=== PATIENT | female | born 1965 | race Caucasian/White ===

== ENCOUNTER → 2023-02-21 | Outpatient (CLI) | payer BC ==
--- NOTE | 2023-02-25 08:59 | CT ---
EXAMINATION TYPE: CT shoulder RT wo con DATE OF EXAM: 02/21/2023 COMPARISON: None HISTORY: Rt shoulder pain/arthritis. Pre surgical. CT DLP: 394.[address] of the right shoulder with reconstruction imaging. TECHNIQUE: Unenhanced CT of the right shoulder was performed with bone and soft tissue window setting s submitted in the axial coronal and sagittal planes. At a separate workstation 3-D TR imaging was o btained. FINDINGS: There is fragmentation in the region of the inferior bony glenoid which may reflect fractur e. There is well-corticated ossific density noted measuring 1 cm in this region. There is flattening of the humeral head posteriorly which may reflect chronic Hill-Sachs deformity. Severe narrowing of t he glenohumeral joint space humeral head spurring and mild subchondral cyst formation. No evidence fo r subacromial impingement as there is a flat acromium. AC joint arthropathy mild in degree. No obvio us rotator cuff abnormality seen on CT. MRI is much more sensitive and specific to rotator cuff path ology. No soft tissue masses appreciated. Visualized portions of the right lung demonstrate right a pical scarring. IMPRESSION: 1. I cannot exclude fracture inferior bony glenoid. 2. Well-corticated ossific density measuring 1 cm adjacent to the inferior glenoid/medial proximal hu merus. 3. Probable chronic Hill-Sachs deformity of the humeral head.
== END | disposition home or self-care (01) ==
LOC: RADCTMAIN 17:11
PROVIDERS: ATTEND Orthopaedic Surgery Sports Medicine
DX: M25.511 Pain in right shoulder (principal); M85.9 Disorder of bone density and structure, unspecified

== ENCOUNTER → 2023-02-21 | Outpatient (CLI) | payer BC ==
[2023-02-21 19:19] LABS: INR 0.9 (<1.2); Partial Thromboplastin Time 32.8 sec (22.0-30.0); Prothrombin Time 9.7 sec (10.0-12.5)
[2023-02-22 02:39] LABS: HGB 13.6 g/dL (12.0-15.0); MCH 28.6 pg (27.0-32.0); MCHC 32.4 g/dL (32.0-37.0); MCV 88.4 FL (80.0-97.0); Mean Platelet Volume 11.1 FL (9.5-12.2); NRBC Per 100 WBC 0 X 10*3/uL (0.00-0.01); Platelet Count 246 X 10*3/uL (140-440); RBC 4.75 X 10*6/uL (4.10-5.20); RDW 12.5 % (11.5-14.5); WBC 8.09 X 10*3/uL (4.50-10.00)
[2023-02-22 02:57] LABS: ALT 35 U/L (8-44); AST 17 U/L (13-35); Albumin 4.7 g/dL (3.8-4.9); Albumin/Globulin Ratio 2.14 Ratio (1.60-3.17); Alkaline Phosphatase 133 U/L (41-126); BUN/Creat Ratio 32.67 Ratio (12.00-20.00); Blood Urea Nitrogen 19.6 mg/dL (9.0-27.0); Calcium 10.1 mg/dL (8.7-10.3); Chloride 103 mmol/L (96-109); Globulin 2.2 g/dL (1.6-3.3); Glucose 105 mg/dL (70-110); Potassium 4.4 mmol/L (3.5-5.5); Sodium 139 mmol/L (135-145); Total Bilirubin <0.2 mg/dL (0.3-1.2); Total Protein 6.9 g/dL (6.2-8.2)
== END | disposition home or self-care (01) ==
LOC: LABPAT 16:03
PROVIDERS: ATTEND Orthopaedic Surgery Sports Medicine
DX: Z01.812 Encounter for preprocedural laboratory examination (principal); Z22.322 Carrier or suspected carrier of Methicillin resistant Staphylococcus aureus; M19.011 Primary osteoarthritis, right shoulder
CPT/HCPCS: 80053; 85027; 85610; 85730; 93005

== ENCOUNTER 2023-03-06 07:49 | Observation (INO) | payer BC ==
[2023-03-04 08:45] VITALS: BMI 29.0
[~2023-03-06 07:49] MED LIST: ACETAMINOPHEN TAB 500 MG TAB PO PRN; HYDROmorphone 0.5 MG/0.5 ML SYRINGE IVP PRN; LIDOCAINE 1% (10MG/ML) FOR IV START INTRADERMA PRN; ONDANSETRON 4 MG/2 ML VIAL IVP PRN; TRANEXAMIC 1,000 MG/100ML-NACL 1,000 MG in SALINE 1 100ML.BAG IVPB PRN
[2023-03-06] MEDS: LACTATED RINGERS 1,000 ML IV SCH ×2 (08:02→14:42)
[2023-03-06] MEDS: GABAPENTIN 300 MG CAP PO PRN (08:07)
[2023-03-06] MEDS: MELOXICAM 7.5 MG TAB PO PRN (08:08)
[2023-03-06] MEDS: ONDANSETRON 4 MG/2 ML VIAL IVP PRN (08:38)
[2023-03-06] MEDS: DEXAMETHASONE SOD PHOSPHATE 4 MG/ML 1 ML VIAL IV ONE (08:38)
[2023-03-06] MEDS: MIDAZOLAM 2 MG/2 ML VIAL IVP ONE (08:51)
[2023-03-06] MEDS ORDERED: GLYCOPYRROLATE 0.2 MG/ML 2 ML VIAL ONE (09:25)
[2023-03-06] MEDS ORDERED: TRANEXAMIC 1,000 MG/100ML-NACL PREMIX BAG ONE (09:25)
[2023-03-06] MEDS ORDERED: SUCCINYLCHOLINE CHLORIDE 200 MG/10 ML VIAL IV ONE (09:25)
[2023-03-06] MEDS ORDERED: DEXAMETHASONE SOD PHOSPHATE 4 MG/ML 1 ML VIAL ONE (09:25)
[2023-03-06] MEDS ORDERED: ePHEDrine 50 MG/ML 1 ML VIAL ONE (09:25)
[2023-03-06] MEDS ORDERED: ROCURONIUM 10 MG/ML (5 ML VIAL) IV ONE (09:25)
[2023-03-06] MEDS ORDERED: PHENYLEPHRINE-0.9% NACL SYG 1,000 MCG/10 ML SYRINGE ONE (09:25)
[2023-03-06] MEDS ORDERED: LIDOCAINE 1% INJ 10MG/ML (20 ML MDV) ONE (09:25)
[2023-03-06] MEDS ORDERED: PHENYLEPHRINE 10 MG/ML VIAL ONE (09:25)
[2023-03-06] MEDS ORDERED: ROPIVACAINE 5 MG/ML 30 ML VIAL ONE (09:25)
[2023-03-06] MEDS ORDERED: NEOSTIGMINE 1 MG/ML 10 ML VIAL ONE (09:25)
[2023-03-06] MEDS ORDERED: PROPOFOL 10 MG/ML 20 ML VIAL IV ONE (09:25)
[2023-03-06] MEDS ORDERED: ONDANSETRON 4 MG/2 ML VIAL IVP PRN (09:40)
[2023-03-06] MEDS ORDERED: SENNOSIDES-DOCUSATE SODIUM 1 EACH TAB PO PRN (09:40)
[2023-03-06] MEDS ORDERED: TEMAZEPAM 15 MG CAP PO PRN (09:40)
[2023-03-06] MEDS ORDERED: diphenhydrAMINE 25 MG CAP PO PRN (09:40)
[2023-03-06] MEDS ORDERED: HYDROmorphone 0.5 MG/0.5 ML SYRINGE IVP PRN ×2 (09:40)
[2023-03-06] MEDS ORDERED: METOCLOPRAMIDE 5 MG/ML 2 ML VIAL IVP PRN (09:40)
[2023-03-06] MEDS: ceFAZolin 1,000 MG in SODIUM CHLORIDE 0.9% 1,000 ML IRRIGATION ONE (10:01)
[2023-03-06] MEDS: VANCOMYCIN 1,000 MG VIAL MISCELLANE ONE (10:18)
--- NOTE | 2023-03-06 12:48 | XR ---
EXAMINATION TYPE: XR shoulder limited RT DATE OF EXAM: 03/06/2023 COMPARISON: NONE HISTORY: 57-year-old female postoperative evaluation right shoulder TECHNIQUE: Single frontal view FINDINGS: There is placement of a right total shoulder arthroplasty. Alignment appears appropriate. Some minima l soft tissue air related to recent operation. No periprosthetic fracture seen. ACDF hardware noted. IMPRESSION: Uncomplicated postoperative appearance right total shoulder arthroplasty.
[2023-03-06] MEDS: droPERidol 5 MG/2 ML VIAL IVP ONE (14:41)
--- NOTE | 2023-03-06 17:18 | P.CONS ---
History of Present Illness - Reason for Consult Consult date: 03/06/23 - History of Present Illness Patient is a 57 y.o female w/ hx of depression, RLS, OA presenting for elective right total shoulder arthroplasty.[facility], [place] physicians has been consulted for medical management. Patient denies any CP, SOB, abdominal pain, urinary or bowel complaints. Vital signs within normal limits, on RA, no labs available. Pertinent positives and negatives as discussed in HPI, a complete review of sy stems was performed and all other systems are negative. Patient seen and examined at bedside. Vital signs reviewed General: nontoxic, no distress, appears at stated age Derm: warm, dry Head: atraumatic, normocephalic, symmetric Eyes: EOMI, no lid lag, anicteric sclera, pupils equal round reactive to light ENT: Nose and ears atraumatic Neck: No thyromegaly, supple Mouth: no lip lesion, mucus membranes moist Cardiovascular: S1S2 reg, no murmur, no edema Lungs: clear to auscultation bilateral, no rhonchi, no rales, no wheeze, no accessory muscle use Abdominal: soft, nontender to palpation, no guarding, no appreciable organomegaly Ext: no gross muscle atrophy, muscle strength muscle strength 5 out of 5 in all 4 extremities, no contractures, right arm in sling Neuro: CN II-XII grossly intact Psych: Alert, oriented, appropriate affect Assessment/Plan: [Active:] S/p right total shoulder arthroplasty Depression restless leg syndrome - on oral norco PRN, IV dilaudid PRN for pain control - bowel regimen and dvt ppx per ortho - continue bupropion and pramipexole and effexor - ok to continue LR 100 cc/hr - CBC and BMP tomorrow Thank you for allowing us to participate in the care of this pleasant patient. Do not hesitate to contact us with questions. Someone can be reached from the [facility] hospitalist group all hours of the day at [phone] or via [employer] To Get Approved For. Past Medical History Past Medical History: Osteoarthritis (OA) Additional Past Medical History / Comment(s): RT SHOULDER PAIN History of Any Multi-Drug Resistant Organisms: None Reported Past Surgical History: Back Surgery, Tonsillectomy Additional Past Surgical History / Comment(s): SPINAL FUSION X 2. COLONOSCOPY Past Anesthesia/Blood Transfusion Reactions: No Reported Reaction Smoking Status: Current some day smoker - Past Family History Father Family Medical History: Cancer Medications and Allergies Home Medications Medication Instructions Recorded Confirmed Type Cider Vinegar [Apple Cider Vinegar] 300 mg PO DAILY 03/04/23 03/06/23 History HYDROcodone/APAP 7.5-325MG [[place] 1 tab PO Q4-6H PRN 03/04/23 03/06/23 History 7.5-325] L.acidoph,Paracasei, B.lactis 1 each PO DAILY 03/04/23 03/06/23 History [Probiotic] Meloxicam [Mobic] 15 mg PO DAILY 03/04/23 03/06/23 History Multivit with Calcium,Iron,Min 1 each PO DAILY 03/04/23 03/06/23 History [Women's Multivitamin] [place]-3/Dha/Epa/Fish Oil [Fish Oil 1 each PO DAILY 03/04/23 03/06/23 History 1,000 mg Softgel] Pramipexole [Mirapex] 0.5 mg PO HS 03/04/23 03/06/23 History Venlafaxine HCl [Effexor XR] 150 mg PO DAILY 03/04/23 03/06/23 History buPROPion HCL [buPROPion HCL Xl] 150 mg PO DAILY 03/04/23 03/06/23 History HYDROcodone/APAP 5-325MG [[place] 5 mg PO Q6HR PRN 03/06/23 03/06/23 History 5-325] Venlafaxine HCl ER [Effexor Xr] 75 mg PO DAILY 03/06/23 03/06/23 History Allergies Allergy/AdvReac Type Severity Reaction Status Date / Time No Known Allergies Allergy Verified 03/06/23 08:03 Physical Exam Vitals: Vital Signs Temp Pulse Pulse Pulse Resp BP BP 03/06/23 15:46 99.3 F 98 18 99/62 03/06/23 14:20 90 16 102/53 03/06/23 13:50 85 16 93/53 03/06/23 13:30 90 16 105/52 03/06/23 13:15 87 16 97/52 03/06/23 13:12 83 16 90/56 03/06/23 12:57 83 16 101/53 03/06/23 12:47 87 16 101/53 03/06/23 12:33 86 16 92/49 03/06/23 12:18 87 16 92/51 03/06/23 12:03 87 16 100/47 03/06/23 11:52 92 16 91/75 03/06/23 08:58 76 14 122/60 03/06/23 08:16 97.8 F 79 18 137/63 Pulse Ox 03/06/23 15:46 95 03/06/23 14:20 95 03/06/23 13:50 95 03/06/23 13:30 94 L 03/06/23 13:15 93 L 03/06/23 13:12 93 L 03/06/23 12:57 95 03/06/23 12:47 97 03/06/23 12:33 95 03/06/23 12:18 95 03/06/23 12:03 99 03/06/23 11:52 100 03/06/23 08:58 99 03/06/23 08:16 98 Intake and Output 03/06/23 03/06/23 03/06/23 06:59 14:59 22:59 Intake Total 851 800 Output Total 100 Balance 751 800 Intake: IV 851 Intake, IV Titration 800 Amount Lactated Ringers 1,000 ml 800 @ 100 mls/hr IV .Q10H [facility] Rx#:[id number] Output: Estimated Blood Loss 100 Other: Weight 84.9 kg
--- NOTE | 2023-03-06 19:14 | OP ---
OPERATIVE REPORT DATE OF SERVICE : 03/06/2023 HOT KNIFE FOXING CUTTER: James Flanagan PA-C. PREOPERATIVE DIAGNOSIS: Right shoulder osteoarthrosis. POSTOPERATIVE DIAGNOSIS: Right shoulder osteoarthrosis. OPERATION: Right total shoulder arthroplasty. ANESTHESIA: General endotracheal. ESTIMATED BLOOD LOSS: 100 mL. DRAINS: None. COMPLICATIONS: None apparent. DISPOSITION: Postanesthesia care unit. INDICATIONS: The patient is a very pleasant 57-year-old female with longstanding right shoulder pain. Workup including x-rays and a CT scan revealed advanced osteoarthrosis of the right shoulder. At this point, it is felt that she has failed conservative management and she would like to proceed with operative intervention. The risks of procedure were discussed with her in detail. These risks include but are not limited to risk of infection, nerve damage, bleeding, pain, instability in the shoulder, loosening the implants, and deep infection. There is also small risk of deep vein thrombosis, which could lead to fatal pulmonary embolism. The patient understood these risks. All of her questions with regard to the risks of procedure were answered to her satisfaction. An appropriate informed consent was obtained. DESCRIPTION OF PROCEDURE: The patient was identified in the preoperative holding area. Surgical site was marked by both the patient and myself. She was given 2 g of Ancef IV for prophylactic purposes. She was then transported to the operative suite. She was placed supine on the operating table. A general anesthetic was administered and dosed per the Anesthesia Department without apparent complication. An examination under anesthesia then performed of the right shoulder. She had elevation to 130 degrees. External rotation at the side was to 30 degrees. She was then placed into the beach chair position, well-padded in preparation for surgery. Great care was taken to ensure that her cervical spine was in neutral alignment, well-padded, and maintained that way throughout the operative procedure. Great care was also taken to ensure that her legs were appropriately padded as well. The patient's right upper extremity was then prepped and draped in the usual sterile fashion. Standard surgical pause undertaken to ensure that we were operating the correct site and that appropriate preoperative antibiotics were given. All staff in the room were in agreement and we proceeded. The acromion AC joint, clavicle, and coracoid were marked with a surgical pen. A planned incision starting at the level of the clavicle and extending distally over the deltopectoral interval approximately 1 cm lateral to the coracoid was marked with a surgical pen. The incision was then made with a 10-blade scalpel. Dissection was carried down sharply to the deltoid fascia. The deltopectoral interval was then identified at the level of the clavicle. A small band retractor was then placed onto the proximal deltoid. I then released the deltoid fascia on the lateral aspect of the cephalic vein. The vein was left in its bed medially. The cephalic vein was protected throughout the entire case. I then identified the clavipectoral fascia. This was incised proximally to the level of the coracoacromial ligament. The coracoacromial ligament was left intact. I then used my finger to spread the interval between the conjoint tendon and the subscapularis. I felt for the axillary nerve, which was readily palpable. I then cleared the subacromial and subdeltoid spaces of bursal and scar tissue. I then utilized a brown retractor to hold the deltoid and exposed the humeral head. I then proceeded to release the subscapularis in the anterior inferior shoulder capsule. The rotator cuff was inspected. The rotator cuff was intact. The rotator interval was identified. The course of the biceps tendon was also identified. At this point, I did tenodesed the biceps to the proximal soft tissue of the bicipital groove. This was done with multiple interrupted 0 Vicryl sutures. I then released the rotator interval. The release started at the base of the coracoid and then out laterally. The subscapularis and the capsule were then released intertendinously. The subscapularis and capsule release extended distally in a lazy-S fashion approximately 1 cm medial to the biceps tendon. I then continued to release the capsule along the inferior neck in a vertical fashion to approximately the 6 o'clock position. Great care was taken to ensure the capsule was always visualized as it was released as to avoid injuring the axillary nerve. I then brought a Ayala guest room inspector with the arm externally rotated and abducted. I continued to release the capsule inferomedially to approximately the 4 o'clock position. The inferior osteophytes were now removed as well. This was done with a rongeur. I then proceeded with preparation of the humerus. I removed all the goat's henderson osteophytes. I then removed the subchondral plate from the superior aspect of the humeral head utilizing a large rongeur. I then used a starting reamer to gain access to the humeral canal. This was approximately 1 cm medial to the rotator cuff insertion and 1 cm posterior to the bicipital groove. I then prepared the humeral canal with hand reaming. I started with a 6 mm reamer and incrementally increased until firm resistance was encountered at 9 mm. The reamer handle was then left in place. I then utilized a humeral resection guide. This was set at 30 degrees of retrotorsion. The cutting block was then set approximately 1 mm above the insertion of the rotator cuff. I then proceeded to osteotomize the humeral head with an oscillating saw. I removed the resection guide and then completed the osteotomy. I then proceeded with trial stem placement. I then broached the canal starting with a 6 mm broach and incrementally increased up to a 9 mm broach. The 9 mm broach was then left in place. I then proceeded with trial reduction. I started with a 42 mm head. This seemed slightly tight. I then went to a 38 x 19 x 39 head, which seemed to fit very nicely. The head fit opposite to the glenoid. The rotator cuff was not tented. Internal rotation was 90 degrees, elevation was 150 degrees, and translation was 1/2 of the humeral head in neutral rotation and 1/4 of the head inferiorly in 15 to 20 degrees of abduction. I then removed the trial head. The stem was then left in place to protect the proximal humerus. I then proceeded with exposure of the glenoid. At this point, I did release the biceps tendon from the superior labrum. A bone hook was then used to pull the humerus out laterally. I then inspected the joint for any loose bodies. There was fairly large loose body inferiorly, which was removed at this time. The condition of the cuff was again inspected. The rotator cuff was in excellent condition. The Bhattman retractor was then placed on the posterior glenoid rim. The arm was placed approximately 80 degrees of abduction and in slight flexion on the Ayala stand. I then proceeded to remove the hypertrophic labrum to definitively identify the actual glenoid. I then selected the size. Glenoid appeared size 2. Glenoid seemed to fit very nicely. I then utilized a starting drill to make the centering hole. I then proceeded to ream the glenoid fossa. This was done with a size 2 reamer. The reaming was then taken down to paprika signs. I had a nice bleeding surface. As minimal reaming was done as possible, this preserved as much subchondral bone as possible. I then proceeded to place the glenoid drill holes. The peripheral drill holes were then placed and the center hole was drilled as well. I then placed a trial size 2 glenoid and it fit very nicely onto the glenoid. I then proceeded with cementing. The wound and bone were then thoroughly irrigated with sterile saline solution with antibiotic added via pulse lavage. The drill holes were then packed with Ray-Mirza sponges. One pack of antibiotic bone cement was then mixed on the back table by the psychiatric technician assistant. The drill holes were then packed with cement utilizing a 20 mL syringe. These holes were packed very tightly. A small amount of cement was then placed on the posterior aspect of the real glenoid component. I then impacted the real glenoid component in place. It was a size 2 pegged glenoid component with a Regenerex central peg. There was no cement placed on the central peg. Excess cement was removed utilizing a [place] elevator. Pressure was then held on the glenoid component until the cement had hardened. I then removed the Bhattman retractor. I then proceeded with humeral component trial reduction with the real glenoid in place. The 38 x 19 x 39 head was then placed back onto the stem. Again, this was taken down through a trial. The head set opposite the glenoid. The rotator cuff was not tented. Elevation was 150 degrees, internal rotation was 90 degrees, and translation was 1/2 of the humeral head in neutral rotation and 1/4 of the head in 15 to 20 degrees of abduction. I then had the senior patient account representative open a 38 x 19 x 39 real head and a size 9 Biomet mini-stem. The real stem was then impacted into the canal in approximately 30 degrees of retrotorsion. The real head was then impacted on the dried Betts taper of the stem. The shoulder was then reduced. I then proceeded with closure. Again, I felt for the axillary nerve, which was readily palpable. The rotator interval was then closed tightly with 0 Vicryl interrupted suture. The subscapularis and anterior capsule was then repaired with #2 FiberWire interrupted suture. Again, the wound was thoroughly irrigated deep. Approximately 500 mg of vancomycin powder was then placed deep. The deltopectoral interval was then closed with 0 Vicryl interrupted suture. Again, the subcutaneous tissue was irrigated and the remaining 500 mg of vancomycin powder was then placed subcutaneously. The subcutaneous tissue was closed with 2-0 Vicryl interrupted suture and the skin was closed with a running 3-0 Quill suture. Sterile compressive dressing was then applied. The patient's right upper extremity was then placed into a shoulder immobilizer. All sponge and needle counts were deemed correct prior to closure. The patient tolerated the procedure without apparent complication. She was transferred to recovery room in stable condition. MMODL / ILEANAN: [id number] /
--- NOTE | 2023-03-06 19:56 | P.ANPRN ---
Procedure Note - Anesthesia - Nerve Block Performed Right Interscalene Single Time Out Performed: Yes Date of Procedure: 03/06/23 Procedure Start Time: 08:50 Procedure Stop Time: 08:53 Location of Patient: PreOp Indication: Acute Post-Operative Pain, Requested by Surgeon Sedation Type: Sedate with meaningful contact maintained Preparation: Sterile Prep Position: Supine Needle Types: Pajunk Needle Gauge: 21 Ultrasound used to visualize needle placement: Yes Ultrasound used to observe medication spread: Yes Blood Aspirated: No Pain Paresthesia on Injection Noted: No Resistance on Injection: Normal Image Stored and Saved: Yes Events: Uneventful and Well Tolerated (ropi .5% 20cc plus dexamethasone 4mg)
[2023-03-06] MEDS: PRAMIPEXOLE 0.5 MG TAB PO SCH (20:28)
[2023-03-06] MEDS: HYDROmorphone 1 MG/ML 1 ML SYRINGE IVP PRN (21:58)
[2023-03-07] MEDS: HYDROcodone/APAP 10-325MG 1 EACH TAB PO PRN (04:52)
[2023-03-07] MEDS: VENLAFAXINE HCL ER 75 MG CAP PO SCH (08:47)
[2023-03-07] MEDS: buPROPion XL 150 MG TAB.ER.24H PO SCH (08:47)
[2023-03-07] MEDS ORDERED: VENLAFAXINE HCL ER 150 MG CAP PO SCH (09:00)
[2023-03-07 11:02] LABS: Basophils # (A) 0.03 X 10*3/uL (0.00-0.10); Basophils % (A) 0.3 %; Eosinophils # (A) 0.02 X 10*3/uL (0.04-0.35); Eosinophils % (A) 0.2 %; HCT 34.2 % (37.2-46.3); HGB 10.9 g/dL (12.0-15.0); Lymphocytes # (A) 1.85 X 10*3/uL (0.90-5.00); Lymphocytes % (A) 19.8 %; MCH 28.2 pg (27.0-32.0); MCHC 31.9 g/dL (32.0-37.0); MCV 88.4 FL (80.0-97.0); Mean Platelet Volume 11.3 FL (9.5-12.2); Monocytes # (A) 0.92 X 10*3/uL (0.20-1.00); Monocytes % (A) 9.8 %; NRBC Per 100 WBC 0 X 10*3/uL (0.00-0.01); Neutrophils # (A) 6.52 X 10*3/uL (1.80-7.70); Neutrophils % (A) 69.7 %; Platelet Count 195 X 10*3/uL (140-440); RBC 3.87 X 10*6/uL (4.10-5.20); RDW 12.9 % (11.5-14.5); WBC 9.36 X 10*3/uL (4.50-10.00)
[2023-03-07 11:30] LABS: Calcium 9.1 mg/dL (8.7-10.3); Carbon Dioxide 23.3 mmol/L (21.6-31.8); Chloride 108 mmol/L (96-109); Glucose 111 mg/dL (70-110); Potassium 4.3 mmol/L (3.5-5.5); Sodium 142 mmol/L (135-145)
--- NOTE | 2023-03-07 12:44 | P.PN ---
Subjective Progress Note Date: 03/07/23 Subjective: Patient seen and examined. No acute events overnight. Still having significant shoulder pain. Pertinent positives and negatives as discussed above, a complete review of sy stems was performed and all other systems are negative. Vitals Signs Reviewed. General: nontoxic, no distress, appears at stated age Derm: warm, dry Head: atraumatic, normocephalic, symmetric Eyes: EOMI, no lid lag, anicteric sclera Mouth: no lip lesion, mucus membranes moist Cardiovascular: S1S2 reg, no murmur Lungs: CTA bilateral, no rhonchi, no rales , no accessory muscle use Abdominal: soft, nontender to palpation, no guarding, no appreciable organomegaly Ext: no gross muscle atrophy, no edema, no contractures, right arm sling Neuro: CN II-XI grossly intact, no focal neuro deficits Psych: Alert, oriented, appropriate affect Data Reviewed Today: Pertinent Labs: wbc 9.86, hgb 10.9, Cr 0.6 Imaging: No new imaging Assessment and Plan: S/p right total shoulder arthroplasty acute anemia, expected outcome of surgery Depression restless leg syndrome - on oral norco PRN, IV dilaudid PRN for pain control - bowel regimen and dvt ppx per ortho - continue bupropion and pramipexole and effexor - dc fluids Patient is medically optimized for discharge. Thank you for allowing us to participate in the care of this pleasant patient. Do not hesitate to contact us with questions. Someone can be reached from the [facility] hospitalist group all hours of the day at [phone] or via perfect serve. Objective - Vital Signs Vital signs: Vital Signs Temp 97.7 F 03/07/23 07:08 Pulse 77 03/07/23 07:08 Resp 16 03/07/23 07:08 BP 111/72 03/07/23 07:08 Pulse Ox 96 03/07/23 07:08 FiO2 Intake & Output 03/06/23 03/07/23 03/07/23 18:59 06:59 18:59 Intake Total 1651 Output Total 100 Balance 1551 Weight 84.9 kg Intake: IV 851 Intake, IV Titration 800 Amount Lactated Ringers 1,000 ml 800 @ 100 mls/hr IV .Q10H [facility] Rx#:[id number] Output: Estimated Blood Loss 100 Other: Voiding Method Toilet # Voids 1 - Labs CBC & Chem 7: 03/07/23 06:32 03/07/23 06:32 Labs: Abnormal Lab Results - Last 24 Hours (Table) 03/07/23 03/07/23 Range/Units 06:32 06:32 RBC 3.87 L (4.10-5.20) X 10*6/uL Hgb 10.9 L (12.0-15.0) g/dL Hct 34.2 L (37.2-46.3) % MCHC 31.9 L (32.0-37.0) g/dL Eosinophils # 0.02 L (0.04-0.35) X 10*3/uL Glucose 111 H (70-110) mg/dL
[2023-03-07] MEDS ORDERED: oxyCODONE-APAP 7.5-325MG 1 EACH TAB PO PRN (12:50)
--- NOTE | 2023-03-07 13:01 | P.PN ---
Subjective Progress Note Date: 03/07/23 Principal diagnosis: Right TSA Patient is seen at bedside this morning. She is postop day #1 from right total shoulder arthroplasty. She has pain at the surgical site as expected but denies any new complaints. She denies numbness, tingling or calf pain. Review of systems is negative for fever, chills, chest pain, shortness of breath or other Objective - Vital Signs Vital signs: Vital Signs Temp 97.7 F 03/07/23 07:08 Pulse 77 03/07/23 07:08 Resp 16 03/07/23 07:08 BP 111/72 03/07/23 07:08 Pulse Ox 96 03/07/23 07:08 FiO2 Intake & Output 03/06/23 03/07/23 03/07/23 18:59 06:59 18:59 Intake Total 1651 Output Total 100 Balance 1551 Weight 84.9 kg Intake: IV 851 Intake, IV Titration 800 Amount Lactated Ringers 1,000 ml 800 @ 100 mls/hr IV .Q10H [facility] Rx#:[id number] Output: Estimated Blood Loss 100 Other: Voiding Method Toilet # Voids 1 - Exam Inspection reveals a benign surgical wound. There is no active bleeding or drainage. Neurovascular status is intact throughout the upper extremity with motor and sensation fully intact. Calves are soft and nontender. 2+ radial pulse and less than 2 second cap refill is present. - Constitutional General appearance: Present: no acute distress - Labs CBC & Chem 7: 03/07/23 06:32 03/07/23 06:32 Labs: Abnormal Lab Results - Last 24 Hours (Table) 03/07/23 03/07/23 Range/Units 06:32 06:32 RBC 3.87 L (4.10-5.20) X 10*6/uL Hgb 10.9 L (12.0-15.0) g/dL Hct 34.2 L (37.2-46.3) % MCHC 31.9 L (32.0-37.0) g/dL Eosinophils # 0.02 L (0.04-0.35) X 10*3/uL Glucose 111 H (70-110) mg/dL Assessment and Plan (1) Osteoarthritis of right shoulder Narrative/Plan: She will continue with routine postop orthopedic protocol including pain management, wound care, DVT prophylaxis and medical management. Expect that she will transfer to home tomorrow Current Visit: Yes Status: Acute Code(s): M19.011 - PRIMARY OSTEOARTHRITIS, RIGHT SHOULDER SNOMED Code(s): 488218236545760 Time with Patient: Less than 30
[2023-03-07] MEDS: oxyCODONE-APAP 7.5-325MG 1 EACH TAB PO PRN (13:49)
[2023-03-07 19:59] VITALS: RESP 18
[2023-03-08] MEDS: HYDROcodone/APAP 10-325MG 1 EACH TAB PO PRN (01:26)
--- NOTE | 2023-03-08 10:40 | P.PN ---
Subjective Progress Note Date: 03/08/23 Subjective: Patient seen and examined. No acute events overnight. Still having shoulder pain but improving. Pertinent positives and negatives as discussed above, a complete review of systems was performed and all other systems are negative. Vitals Signs Reviewed. General: nontoxic, no distress, appears at stated age Derm: warm, dry Head: atraumatic, normocephalic, symmetric Eyes: EOMI, no lid lag, anicteric sclera Mouth: no lip lesion, mucus membranes moist Cardiovascular: S1S2 reg, no murmur Lungs: CTA bilateral, no rhonchi, no rales , no accessory muscle use Abdominal: soft, nontender to palpation, no guarding, no appreciable organomegaly Ext: no gross muscle atrophy, no edema, no contractures, right arm sling Neuro: CN II-XI grossly intact, no focal neuro deficits Psych: Alert, oriented, appropriate affect Data Reviewed Today: Pertinent Labs: No new labs Imaging: No new imaging Assessment and Plan: S/p right total shoulder arthroplasty acute anemia, expected outcome of surgery Depression restless leg syndrome - on oral norco PRN, IV dilaudid PRN for pain control, monitor for respiratory depression - bowel regimen and dvt ppx per ortho - continue bupropion 150 mg daily and pramipexole 0.5 mg at night and effexor 225 mg daily Patient is medically optimized for discharge. Thank you for allowing us to participate in the care of this pleasant patient. Do not hesitate to contact us with questions. Someone can be reached from the [facility] hospitalist group all hours of the day at [phone] or via perfect serve. Objective - Vital Signs Vital signs: Vital Signs Temp 98.3 F 03/08/23 02:39 Pulse 85 03/08/23 02:39 Resp 18 03/08/23 02:39 BP 115/74 03/08/23 02:39 Pulse Ox 97 03/08/23 02:39 FiO2 Intake & Output 03/07/23 03/08/23 03/08/23 18:59 06:59 18:59 Other: Voiding Method Toilet Toilet # Voids 2 - Labs CBC & Chem 7: 03/07/23 06:32 03/07/23 06:32 Labs: Abnormal Lab Results - Last 24 Hours (Table) 12/22/23 12/22/23 Range/Units 06:32 06:32 RBC 3.87 L (4.10-5.20) X 10*6/uL Hgb 10.9 L (12.0-15.0) g/dL Hct 34.2 L (37.2-46.3) % MCHC 31.9 L (32.0-37.0) g/dL Eosinophils # 0.02 L (0.04-0.35) X 10*3/uL Glucose 111 H (70-110) mg/dL
--- NOTE | 2023-03-08 10:58 | P.DS ---
Providers Date of admission: 03/06/23 09:40 Expected date of discharge: 03/08/23 Attending physician: Hamzah Jiménez Consults: 03/06/23 09:40 Consult Physician Routine Consulting Provider: Echo Berry Consult Reason/Comments: post op medical management Do you want consulting provider notified?: Yes Primary care physician: Almaz Mahan MD - Discharge Diagnosis(es) (1) Right shoulder pain Current Visit: Yes Status: Acute (2) Status post total shoulder arthroplasty Current Visit: Yes Status: Acute (3) Osteoarthritis of right shoulder Current Visit: Yes Status: Acute Hospital Course: This is a pleasant 57 year-old female who presented with right shoulder osteoarthritis who failed outpatient conservative therapy. She was admitted for a right total shoulder arthroplasty. The patient tolerated the procedure well and did well postoperatively. She has continued to improve since yesterday. Her pain is better controlled. Her incision is clean, dry, and intact. She is utilizing a sling for the right upper extremity. She has good use and range of motion of her right wrist and fingers of the right hand. She feels she is ready for discharge today. Condition on day of discharge stable. Patient will be discharged home. Patient was cleared preoperatively for surgery by Dr. Mahan. Patient currently denies any nausea, vomiting, fever, or chills. Patient is eating and voiding freely without difficulty. Dressing has been removed over the right shoulder. Incision site is clean, dry, and intact with no active drainage. Tegaderm and paper tape is reapplied over the surgical incision site. Patient may remove dressing and shower without dressing intact if incision site remains dry over the next 72 hours. No sta nding water. Patient should remain nonweightbearing with her right upper extremity. She should continue to maintain her sling. MAPS has been reviewed. Multiple prescriptions were sent to the patient's pharmacy including Percocet, Zofran, Colace, and doxycycline. She should take these medications as prescribed. She should discontinue hydrocodone while on Percocet. Physical Exam on day of discharge: Patient is awake, alert, and oriented 3 Vital signs stable Good chest excursion with deep inspiration and expiration Dressing has been removed over the right shoulder Incision site is clean, dry, and intact with no active drainage Tegaderm and paper tape is reapplied over the surgical incision site Good active range of motion of the right wrist and fingers of the right hand Neurovascular intact right upper extremity Sling intact over the right upper extremity No significant bruising or swelling around the surgical site at the right shoulder Procedures: Right total shoulder arthroplasty Patient Condition at Discharge: Stable Plan - Discharge Summary Discharge Rx Participant: Yes New Discharge Prescriptions: New oxyCODONE-APAP 7.5-325MG [Percocet 7.5-325 mg] 1 tab PO Q4HR PRN #42 tab PRN Reason: Pain Ondansetron [Zofran] 4 mg PO Q8HR PRN #21 tab PRN Reason: Nausea Docusate [Colace] 100 mg PO BID #60 capsule Doxycycline Hyclate 100 mg PO BID #10 tab Continue Pramipexole [Mirapex] 0.5 mg PO HS Venlafaxine HCl [Effexor XR] 150 mg PO DAILY Venlafaxine HCl ER [Effexor XR] 75 mg PO DAILY buPROPion HCL [buPROPion HCL Xl] 150 mg PO DAILY Lovilia-3/Dha/Epa/Fish Oil [Fish Oil 1,000 mg Softgel] 1 each PO DAILY Multivit with Calcium,Iron,Min [Women's Multivitamin] 1 each PO DAILY L.acidoph,Paracasei, B.lactis [Probiotic] 1 each PO DAILY Cider Vinegar [Apple Cider Vinegar] 300 mg PO DAILY No Action HYDROcodone/APAP 7.5-325MG [Simpson 7.5-325] 1 tab PO Q4-6H PRN PRN Reason: Pain Meloxicam [Mobic] 15 mg PO DAILY HYDROcodone/APAP 5-325MG [Simpson 5-325] 5 mg PO Q6HR PRN PRN Reason: Pain Discharge Medication List Cider Vinegar [Apple Cider Vinegar] 300 mg PO DAILY 03/04/23 [History] HYDROcodone/APAP 7.5-325MG [Simpson 7.5-325] 1 tab PO Q4-6H PRN 03/04/23 [History] L.acidoph,Paracasei, B.lactis [Probiotic] 1 each PO DAILY 03/04/23 [History] Meloxicam [Mobic] 15 mg PO DAILY 03/04/23 [History] Multivit with Calcium,Iron,Min [Women's Multivitamin] 1 each PO DAILY 03/04/23 [History] Lovilia-3/Dha/Epa/Fish Oil [Fish Oil 1,000 mg Softgel] 1 each PO DAILY 03/04/23 [History] Pramipexole [Mirapex] 0.5 mg PO HS 03/04/23 [History] Venlafaxine HCl [Effexor XR] 150 mg PO DAILY 03/04/23 [History] buPROPion HCL [buPROPion HCL Xl] 150 mg PO DAILY 03/04/23 [History] HYDROcodone/APAP 5-325MG [Simpson 5-325] 5 mg PO Q6HR PRN 03/06/23 [History] Venlafaxine HCl ER [Effexor XR] 75 mg PO DAILY 03/06/23 [History] Docusate [Colace] 100 mg PO BID #60 capsule 03/07/23 [Rx] Doxycycline Hyclate 100 mg PO BID #10 tab 03/07/23 [Rx] Ondansetron [Zofran] 4 mg PO Q8HR PRN #21 tab 03/07/23 [Rx] oxyCODONE-APAP 7.5-325MG [Percocet 7.5-325 mg] 1 tab PO Q4HR PRN #42 tab 03/07/23 [Rx] Follow up Appointment(s)/Referral(s): Hamzah Jiménez MD [STAFF PHYSICIAN] - 03/14/23 9:30 am Activity/Diet/Wound Care/Special Instructions: 1. Nonweightbearing right UE 2. Take meds as directed 3. Maintain sling 4. Keep wound clean and dry 5. May shower in 3 days if no bleeding 6. F/U in office with Dr. Jiménez Discharge Disposition: HOME SELF-CARE
[2023-03-08 11:49] VITALS: BP 121/72; PULSE 95
[2023-03-08 12:12] VITALS: TEMP 98
== END 2023-03-08 12:24 | disposition home or self-care (01) ==
LOC: OR 07:49 → 4SSUR 09:40
PROVIDERS: ADMIT Orthopaedic Surgery Sports Medicine; ATTEND Orthopaedic Surgery Sports Medicine
DX: M19.011 Primary osteoarthritis, right shoulder (principal); D64.9 Anemia, unspecified; F32.A Depression, unspecified; G25.81 Restless legs syndrome; M19.90 Unspecified osteoarthritis, unspecified site; F17.200 Nicotine dependence, unspecified, uncomplicated; Z98.1 Arthrodesis status; Z79.1 Long term (current) use of non-steroidal anti-inflammatories (NSAID); Z79.899 Other long term (current) drug therapy; Z80.9 Family history of malignant neoplasm, unspecified
CPT/HCPCS: 23472; 64415; 80048; 85025; 73020; G0378 ×3; C1776; C1713; J2250; J3370; J0330; J1100; J2710; J0690 ×2; J2405; J2001; J1170 ×3; J2795; J2704; J2371 ×2

== ENCOUNTER → 2023-06-25 | Outpatient (CLI) | payer OTHER ==
--- NOTE | 2023-06-25 17:22 | XR ---
EXAMINATION TYPE: XR shoulder complete RT DATE OF EXAM: 06/25/2023 4:43 PM CLINICAL INDICATION:Female, 57 years old with history of M25.511, S46.911A, S70.12XA; MERGED WITH [facility] COMPARISON: 03/06/2023 TECHNIQUE: XR shoulder complete RT; examined in AP, internally rotated and scapular Y projections. FINDINGS: Shoulder arthroplasty with hardware intact. No evidence for fracture. Hardware appears in tact The r emaining portions of the visualized chest are unremarkable. IMPRESSION: Post arthroplasty plasty changes of the right shoulder. Hardware appears in appropriate and stable po sition. No acute osseous pathology.
--- NOTE | 2023-06-25 17:26 | XR ---
EXAMINATION TYPE: XR femur LT DATE OF EXAM: 06/25/2023 4:43 PM CLINICAL INDICATION:Female, 57 years old with history of M25.511, S46.911A, S70.12XA; [facility] COMPARISON: None TECHNIQUE: XR femur LT examined in Frontal and lateral projections. FINDINGS: No evidence of acute osseous pathology, joint dislocation, or soft tissue swelling. Mild o steophyte formations of the superior acetabulum. Mild joint space narrowing. IMPRESSION: 1. No acute osseous pathology. 2. Mild degeneration changes of the hip.
== END | disposition home or self-care (01) ==
LOC: RADXRMAIN 16:15
PROVIDERS: ATTEND Emergency Medicine
DX: S46.911A Strain of unspecified muscle, fascia and tendon at shoulder and upper arm level, right arm, initial encounter (principal); S70.12XA Contusion of left thigh, initial encounter; M19.011 Primary osteoarthritis, right shoulder; M16.12 Unilateral primary osteoarthritis, left hip